=== PATIENT | male | born 1990 | race Caucasian/White ===

== ENCOUNTER 2017-07-09 16:41 | Emergency (ER) | payer BC, OTHER ==
[2017-07-09] MEDS ORDERED: SODIUM CHLORIDE 0.9% 1,000 ML IV STA (17:26)
[2017-07-09] MEDS ORDERED: RX INFO: IV CONTRAST WAS GIVEN 1 EACH MISC MISCELLANE PRN (17:27)
--- NOTE | 2017-07-09 17:28 | ED ---
Syncope HPI - General Chief Complaint: Syncope Stated Complaint: syncope Time Seen by Provider: 07/09/17 17:05 Source: patient Mode of arrival: ambulatory Limitations: no limitations - History of Present Illness Initial Comments: Patient is a 26-year-old male with a past history of cryptogenic stroke presents for syncopal episodes. He has been having increased frequency of these syncopal episodes last 3 weeks with the last couple days increased frequency. He states that prior to this syncopal episode, he becomes very hot and clammy and then blacks out. He states that he also has blurry vision during this time and has chronic headaches as well. He did have one episode of nausea and vomiting today but no abdominal pain, chest pain, shortness of breath. His only medications include aspirin. - Related Data Home Medications Medication Instructions Recorded Confirmed Aspirin EC [Ecotrin] 325 mg PO DAILY 07/09/17 07/09/17 Allergies Allergy/AdvReac Type Severity Reaction Status Date / Time No Known Allergies Allergy Verified 07/09/17 17:19 Review of Systems ROS Statement: Those systems with pertinent positive or pertinent negative responses have been documented in the HPI. Constitutional: Negative for chills, fatigue and fever. Positive for night sweats HENT: Negative for congestion. Respiratory: Negative for chest tightness, shortness of breath and wheezing. Cardiovascular: Negative for chest pain and palpitations. Positive for syncope Gastrointestinal: Negative for abdominal pain. Negative for abdominal distention , diarrhea, nausea and vomiting. Genitourinary: Negative for dysuria. Musculoskeletal: Negative for back pain, neck pain and neck stiffness. Skin: Negative for color change. Neurological: Negative for dizziness, speech difficulty, weakness and light- headedness. Positive for headache and visual changes Psychiatric/Behavioral: Negative for agitation and confusion. The patient is not nervous/anxious. ROS Other: All systems not noted in ROS Statement are negative. Past Medical History Past Medical History: Asthma, CVA/TIA Additional Past Medical History / Comment(s): "cryptogenic stroke" History of Any Multi-Drug Resistant Organisms: None Reported Past Surgical History: No Surgical Hx Reported Past Psychological History: ADD/ADHD Smoking Status: Current every day smoker Past Alcohol Use History: Occasional Past Drug Use History: Marijuana General Exam - General Exam Comments Initial Comments: Physical Exam Constitutional: Pt is oriented to person, place, and time. Pt appears well- developed and well-nourished. No distress. HENT: Head: Normocephalic and atraumatic. Eyes: EOM are normal. Pupils 3 mm reactive bilaterally Neck: Normal range of motion. Neck supple. Cardiovascular: Normal rate, regular rhythm, S1 normal, S2 normal and normal heart sounds. Exam reveals no gallop and no friction rub. No murmur heard. Pulmonary/Chest: Effort normal and breath sounds normal. No tachypnea and no bradypnea. No respiratory distress. No wheezes or rales noted. Abdominal: Soft. Bowel sounds are normal. Pt exhibits no shifting dullness, no distension, no pulsatile liver, no fluid wave, no abdominal bruit and no ascites. There is no tenderness. There is no rigidity, no rebound, no guarding, no tenderness at McBurney's point and negative Wiggins's sign. Musculoskeletal: Normal range of motion. Neurological: Pt is alert and oriented to person, place, and time. No cranial nerve deficit. No ataxia Skin: Skin is warm and dry. No rash noted. Pt is not diaphoretic. No erythema. No pallor. Psychiatric: Pt has a normal mood and affect. Pt behavior is normal. Thought content normal. Limitations: no limitations Course Vital Signs 07/09/17 07/09/17 07/09/17 16:54 18:07 18:52 Temperature 98.7 F Pulse Rate 93 87 Pulse Rate [ 81 Sitting Mail Examiner] Pulse Rate [ 93 Standing Mail Examiner ] Pulse Rate [ 82 Supine Mail Examiner] Respiratory 18 18 Rate Blood Pressure 177/93 150/70 Blood Pressure 140/78 [Left Arm Sitting] Blood Pressure 151/83 [Left Arm Standing] Blood Pressure 143/79 [Left Arm Supine] O2 Sat by Pulse 98 97 Oximetry EKG Findings - EKG Comments: EKG Findings:: EKG shows normal sinus rhythm with rate of 81 bpm, NV interval 130, QRS 94, QTC 420. There is no significant ST depressions or elevations. There is nonspecific T-wave inversion of lead V1 Medical Decision Making - Medical Decision Making Laboratory studies revealed that there is no significant electrolyte derangements and coagulation studies and CBC were within normal limits. CT of the head was performed and showed no evidence of acute pathology. Etiology of the symptoms are unclear and because the patient is a significant fall risk and does have a history of CVA in the past, is felt that the patient should be monitored overnight on telemetry.Explained all labs and diagnostic test results and that we will admit patient to hospital. Pt is agreeable to plan and case has been discussed with Dr. Arceo and they agree to accept the pt. - Lab Data Result diagrams: 07/09/17 18:00 07/09/17 18:00 Lab Results 07/09/17 07/09/17 07/09/17 Range/Units 18:00 18:00 18:00 WBC 8.2 (3.8-10.6) k/uL RBC 4.80 (4.30-5.90) m/uL Hgb 14.1 (13.0-17.5) gm/dL Hct 41.6 (39.0-53.0) % MCV 86.6 (80.0-100.0) fL MCH 29.4 (25.0-35.0) pg MCHC 34.0 (31.0-37.0) g/dL RDW 12.5 (11.5-15.5) % Plt Count 275 (150-450) k/uL Neutrophils % 76 % Lymphocytes % 14 % Monocytes % 5 % Eosinophils % 4 % Basophils % 0 % Neutrophils # 6.3 (1.3-7.7) k/uL Lymphocytes # 1.1 (1.0-4.8) k/uL Monocytes # 0.4 (0-1.0) k/uL Eosinophils # 0.4 (0-0.7) k/uL Basophils # 0.0 (0-0.2) k/uL PT 10.5 (9.0-12.0) sec INR 1.1 (<1.2) APTT 24.0 (22.0-30.0) sec Sodium 141 (137-145) mmol/L Potassium 3.9 (3.5-5.1) mmol/L Chloride 103 (98-107) mmol/L Carbon Dioxide 26 (22-30) mmol/L Anion Gap 12 mmol/L BUN 14 (9-20) mg/dL Creatinine 0.78 (0.66-1.25) mg/dL Est GFR (CKD-EPI)AfAm >90 (>60 ml/min/1.73 sqM) Est GFR (CKD-EPI)NonAf >90 (>60 ml/min/1.73 sqM) Glucose 81 (74-99) mg/dL Calcium 9.6 (8.4-10.2) mg/dL Magnesium 2.0 (1.6-2.3) mg/dL Total Bilirubin 0.5 (0.2-1.3) mg/dL AST 27 (17-59) U/L ALT 30 (21-72) U/L Alkaline Phosphatase 86 (38-126) U/L Total Protein 6.7 (6.3-8.2) g/dL Albumin 4.5 (3.5-5.0) g/dL Disposition Clinical Impression: Syncope Disposition: ADMITTED IP TO THIS HOSP Condition: Good Referrals: None,Stated [Primary Care Provider] - 1-2 days Decision Date: 07/09/17 Decision Time: 20:16
[2017-07-09 18:09] LABS: Basophils % (A) 0 %; Eosinophils # (A) 0.4 k/uL (0-0.7); Eosinophils % (A) 4 %; HCT 41.6 % (39.0-53.0); HGB 14.1 gm/dL (13.0-17.5); Lymphocytes # (A) 1.1 k/uL (1.0-4.8); Lymphocytes % (A) 14 %; MCH 29.4 pg (25.0-35.0); MCV 86.6 fL (80.0-100.0); Mean Platelet Volume 6.7; Monocytes # (A) 0.4 k/uL (0-1.0); Monocytes % (A) 5 %; Neutrophils # (A) 6.3 k/uL (1.3-7.7); Neutrophils % (A) 76 %; Platelet Count 275 k/uL (150-450); RDW 12.5 % (11.5-15.5); WBC 8.2 k/uL (3.8-10.6)
[2017-07-09 18:19] LABS: ALT 30 U/L (21-72); AST 27 U/L (17-59); Albumin 4.5 g/dL (3.5-5.0); Alkaline Phosphatase 86 U/L (38-126); Anion Gap 12 mmol/L; Blood Urea Nitrogen 14 mg/dL (9-20); Calcium 9.6 mg/dL (8.4-10.2); Carbon Dioxide 26 mmol/L (22-30); Chloride 103 mmol/L (98-107); Glucose 81 mg/dL (74-99); Potassium 3.9 mmol/L (3.5-5.1); Sodium 141 mmol/L (137-145); Total Bilirubin 0.5 mg/dL (0.2-1.3); Total Protein 6.7 g/dL (6.3-8.2)
[2017-07-09 18:22] LABS: INR 1.1 (<1.2); Prothrombin Time 10.5 sec (9.0-12.0)
--- NOTE | 2017-07-09 18:50 | CT ---
History headache. Comparison 11/09/2012. TECHNIQUE: Multiple axial sections were obtained of the brain with no contrast. Multiple axial sections were obt ained additionally with intravenous contrast. The contrast was Isovue 100 mL. FINDINGS: The ventricles and sulci appear normal. There is no mass effect nor midline shift. There is no sign o f intracranial hemorrhage. The contrast images show no pathologic enhancement. The calvarium is intac t. CONCLUSION: Normal CT scan of the brain. No change.
[2017-07-09] MEDS ORDERED: NALOXONE 0.4 MG/ML 1 ML VIAL IV PRN (20:09)
[2017-07-09 20:33] VITALS: BP 158/83; PULSE 74; RESP 16; TEMP 99.4
--- NOTE | 2017-07-09 20:41 | ED ---
Medical Decision Making - Medical Decision Making Nursing staff requested physician to constipation bedside as the patient will like to leave AMA. Patient states that he would like to follow up with Dr. Scott as an outpatient. Explained to patient that leaving AGAINST MEDICAL ADVICE could result in , disability or other significant injuries. Patient expressed understanding.Explained all labs and diagnostic test results and that we will discharge the patient home and patient is to follow up with PCP in 1-2 days and return to the ED if symptoms worsen. Pt is agreeable to plan. - Lab Data Result diagrams: 07/09/17 18:00 07/09/17 18:00 Lab Results 07/09/17 07/09/17 07/09/17 Range/Units 18:00 18:00 18:00 WBC 8.2 (3.8-10.6) k/uL RBC 4.80 (4.30-5.90) m/uL Hgb 14.1 (13.0-17.5) gm/dL Hct 41.6 (39.0-53.0) % MCV 86.6 (80.0-100.0) fL MCH 29.4 (25.0-35.0) pg MCHC 34.0 (31.0-37.0) g/dL RDW 12.5 (11.5-15.5) % Plt Count 275 (150-450) k/uL Neutrophils % 76 % Lymphocytes % 14 % Monocytes % 5 % Eosinophils % 4 % Basophils % 0 % Neutrophils # 6.3 (1.3-7.7) k/uL Lymphocytes # 1.1 (1.0-4.8) k/uL Monocytes # 0.4 (0-1.0) k/uL Eosinophils # 0.4 (0-0.7) k/uL Basophils # 0.0 (0-0.2) k/uL PT 10.5 (9.0-12.0) sec INR 1.1 (<1.2) APTT 24.0 (22.0-30.0) sec Sodium 141 (137-145) mmol/L Potassium 3.9 (3.5-5.1) mmol/L Chloride 103 (98-107) mmol/L Carbon Dioxide 26 (22-30) mmol/L Anion Gap 12 mmol/L BUN 14 (9-20) mg/dL Creatinine 0.78 (0.66-1.25) mg/dL Est GFR (CKD-EPI)AfAm >90 (>60 ml/min/1.73 sqM) Est GFR (CKD-EPI)NonAf >90 (>60 ml/min/1.73 sqM) Glucose 81 (74-99) mg/dL Calcium 9.6 (8.4-10.2) mg/dL Magnesium 2.0 (1.6-2.3) mg/dL Total Bilirubin 0.5 (0.2-1.3) mg/dL AST 27 (17-59) U/L ALT 30 (21-72) U/L Alkaline Phosphatase 86 (38-126) U/L Total Protein 6.7 (6.3-8.2) g/dL Albumin 4.5 (3.5-5.0) g/dL Disposition Clinical Impression: Syncope Disposition: Left Against Medical Advice Condition: Good Is patient prescribed a controlled substance at d/c from ED?: No Time of Disposition: 20:38
== END 2017-07-09 20:54 | disposition left against medical advice (07) ==
LOC: EC 16:41 → 3OBS 20:14 → UNDOADMOB 20:14 → EC 20:54
DX: R55 Syncope and collapse (principal); R51 Headache; H53.8 Other visual disturbances; R11.2 Nausea with vomiting, unspecified; F17.200 Nicotine dependence, unspecified, uncomplicated; Z79.82 Long term (current) use of aspirin; Z86.73 Personal history of transient ischemic attack (TIA), and cerebral infarction without residual deficits; Z53.21 Procedure and treatment not carried out due to patient leaving prior to being seen by health care provider
CPT/HCPCS: 99284; 96360; 96361; 36415; 93005; 80053; 83735; 85025; 85610; 85730; 70470; Q9967